=== PATIENT | male | born 1995 | race Caucasian/White ===

== ENCOUNTER 2020-03-26 08:26 | Day surgery (SDC) | payer BC, OTHER ==
[~2020-03-26 08:26] MED LIST: Lactated Ringers 1,000 ML IV SCH; Lidocaine 2% 5 ML SDV ONE; Propofol 200 MG/20 ML SDV ONE
--- NOTE | 2020-03-26 09:05 | PCM.PREANE ---
Preanesthetic Assessment - Anesthesia/Transfusion/Family Hx Anesthesia History: Prior Anesthesia Without Reaction Family History of Anesthesia Reaction: No Transfusion History: No Prior Transfusion(s) - Review of Systems General: No Symptoms Pulmonary: No Symptoms Cardiovascular: No Symptoms Neurological: No Symptoms Other: Reports: None - Physical Assessment NPO Status Date: 03/25/20 Height: 6 ft Weight: 75.75 kg ASA Class: 2 Mental Status: Alert & Oriented x3 Airway Class: Mallampati = 3 Dentition: Reports: Normal Dentition ROM/Head Extension: Full Lungs: Clear to Auscultation, Normal Respiratory Effort Cardiovascular: Regular Rate, Regular Rhythm - Allergies Allergies/Adverse Reactions: Allergies Allergy/AdvReac Type Severity Reaction Status Date / Time No Known Allergies Allergy Verified 03/22/20 13:57 - Blood Blood Available: No - Anesthesia Plan Pre-Op Medication Ordered: None - Acknowledgements Pt an Appropriate Candidate for the Planned Anesthesia: Yes Alternatives and Risks of Anesthesia Discussed w Pt/Guardian: Yes Pt/Guardian Understands and Agrees with Anesthesia Plan: Yes Additional Comments: PMH: ADD on concerta PLAN: TIVA PreAnesthesia Questionnaire HEENT History: Reports: Other (See Below) Other HEENT History: uses glasses for night driving Psychiatric History: Reports: ADD - Past Surgical History Head Surgeries/Procedures: Reports: None HEENT Surgical History: Reports: Oral Surgery Other HEENT Surgeries/Procedures: removal of wisdom teeth - SUBSTANCE USE Smoking Status *Q: Never Smoker Recreational Drug Use History: No - HOME MEDS Home Medications: Home Meds Cholecalciferol (Vitamin D3) [Vitamin D3] 1,000 unit PO DAILY 03/22/20 [History] Concerta 18 mg PO DAILY 03/22/20 [History] Vitamin B Complex 1 cap PO DAILY 03/22/20 [History] - CURRENT (IN HOUSE) MEDS Current Meds: Current Medications Lactated Ringer's (Ringers, Lactated) 1,000 mls @ 125 mls/hr IV ASDIRECTED RAY Discontinued Medications Lidocaine (Xylocaine-Mpf 2%) Confirm Administered Dose 5 ml .ROUTE .STK-MED ONE Stop: 03/26/20 08:23 Propofol (Diprivan 20 Ml) Confirm Administered Dose 400 mg .ROUTE .STK-MED ONE Stop: 03/26/20 08:23 Propofol (Diprivan 20 Ml) Confirm Administered Dose 200 mg .ROUTE .STK-MED ONE Stop: 03/26/20 08:25
[2020-03-26] MEDS ORDERED: Propofol 200 MG/20 ML SDV ONE ×3 (10:41→10:54)
--- NOTE | 2020-03-26 11:10 | PCM.OPNOTE ---
- General Post-Op/Procedure Note Date of Surgery/Procedure: 03/26/20 Operative Procedure(s): Esophagogastroduodenoscopy with duodenal and gastric biopsies. Colonoscopy with random cecal, sigmoid and rectal biopsies. Pre Op Diagnosis: Chronic abdominal pain with noninfectious diarrhea. Abdominal bloating. Post-Op Diagnosis: Mild chronic gastritis. No acute colitis. Anesthesia Technique: MAC (ASA II) Primary Surgeon: Paresh Carlson Condition: Good Free Text/Narrative:: DICTATION [id number] CPT CODE [id number]
[2020-03-26] MEDS ORDERED: Lactated Ringers 1,000 ML IV SCH (11:15)
--- NOTE | 2020-03-26 11:37 | PCM.POSTAN ---
POST ANESTHESIA ASSESSMENT - MENTAL STATUS Mental Status: Alert, Oriented - VITAL SIGNS Vital Signs: Last Vital Signs Temp 98.2 F 03/26/20 11:04 Pulse 66 03/26/20 11:35 Resp 19 03/26/20 11:35 BP 101/47 L 03/26/20 11:35 Pulse Ox 99 03/26/20 11:35 - RESPIRATORY Respiratory Status: Respiratory Rate WNL, Airway Patent, O2 Saturation Stable - CARDIOVASCULAR CV Status: Pulse Rate WNL, Blood Pressure Stable - GASTROINTESTINAL GI Status: No Symptoms - POST OP HYDRATION Hydration Status: Adequate & Stable
--- NOTE | 2020-03-26 11:53 | PCM48HPAN ---
Post Anesthesia Note - EVALUATION WITHIN 48HRS OF ANESTHETIC Vital Signs in Normal Range: Yes Patient Participated in Evaluation: Yes Respiratory Function Stable: Yes Airway Patent: Yes Cardiovascular Function Stable: Yes Hydration Status Stable: Yes Pain Control Satisfactory: Yes Nausea and Vomiting Control Satisfactory: Yes Mental Status Recovered: Yes Vital Signs: Last Vital Signs Temp 98.2 F 03/26/20 11:04 Pulse 70 03/26/20 11:45 Resp 16 03/26/20 11:45 BP 128/82 03/26/20 11:45 Pulse Ox 99 03/26/20 11:45
--- NOTE | 2020-03-26 13:45 | OR ---
SURGEON: Paresh Carlson M.D. DATE OF PROCEDURE: 03/26/2020 OPERATION PERFORMED: Esophagogastroduodenoscopy with biopsy. PRIMARY SURGEON: Paresh Carlson M.D. ANESTHESIA: MAC. ASA CLASSIFICATION: II. PREOPERATIVE DIAGNOSES: Abdominal pain with bloating. POSTOPERATIVE DIAGNOSES: Mild chronic gastritis without ulceration. DESCRIPTION OF PROCEDURE: The patient was taken to the endoscopy room and positioned on the endoscopy table in the left lateral decubitus position. Time-out was called for appropriate identification of the patient and procedure. Monitored anesthesia care was provided. The bite block was placed between the patient's teeth. The gastroscope was inserted through the bite block into the oropharynx and advanced without difficulty through the esophagus and stomach, into the duodenum where examination was now carried out in a retrograde fashion. Biopsies of the duodenum were obtained. No acute inflammatory changes or ulcerations were noted. The stomach does show [id number] chronic gastritis. Again, biopsies of the antrum were obtained. The gastroscope was retroflexed to visualize the proximal stomach. No acute ulcerations were noted proximally. There was no evidence of a hiatal hernia. The gastroscope was then straightened and slowly withdrawn carefully visualizing the greater and lesser curvatures. Again, no ulcerations or inflammatory changes were noted. The GE junction was well defined and showed no acute inflammatory changes or ulcerations. The stomach demonstrated good contractility. No mid or proximal lesions were identified. As the scope was withdrawn, the vocal cords were visualized, noted to move symmetrically. The gastroscope was then removed with the patient having tolerated the procedure well. Following colonoscopy, he was taken to recovery room in stable condition. RAMILA / WOJCIECH /[id number]
--- NOTE | 2020-03-26 14:16 | OR ---
SURGEON: Paresh Carlson M.D. DATE OF PROCEDURE: 03/26/2020 OPERATION PERFORMED: Colonoscopy with biopsies of the cecum, sigmoid, and rectum. PRIMARY SURGEON: Paresh Carlson MD ANESTHESIA: MAC. ASA CLASSIFICATION: II. PREOPERATIVE DIAGNOSIS: Chronic noninfectious diarrhea. POSTOPERATIVE DIAGNOSIS: No acute inflammatory changes. DESCRIPTION OF PROCEDURE: With the patient maintained in the left lateral decubitus position and following esophagogastroduodenoscopy, colonoscopy was performed. The colonoscope was inserted into the rectum and advanced with minimal difficulty to the cecum. The cecum was identified by internal landmarks and external pressure. The colonoscope was retroflexed in the cecum to visualize the ascending colon, then straightened and slowly withdrawn. Random biopsies of the cecum were obtained given this gentleman's history of progressive and persistent noninfectious diarrhea. No acute inflammatory changes were noted in the cecum, ascending colon, hepatic flexure, transverse colon, splenic flexure, or descending colon. Again, sigmoid biopsies were obtained in a random fashion given his history. No diverticular changes or polyps were noted in the sigmoid colon. The colonoscope was then withdrawn to the rectum and retroflexed. No acute inflammatory changes or ulcerations were identified. Again, because of his history, random biopsies of the rectum were obtained. There was no obvious proctitis nor any ulcerations noted. The colonoscope was then straightened, the rectum aspirated, and the colonoscope removed. The patient tolerated the procedure well and was taken to recovery room in stable condition. RAMILA / WOJCIECH /[id number]
== END 2020-03-26 12:31 | disposition home or self-care (01) ==
LOC: MW.SDS 08:26
PROVIDERS: ATTEND Surgery
DX: K52.9 Noninfective gastroenteritis and colitis, unspecified (principal); K29.50 Unspecified chronic gastritis without bleeding; K31.89 Other diseases of stomach and duodenum; F98.8 Other specified behavioral and emotional disorders with onset usually occurring in childhood and adolescence; Z79.899 Other long term (current) drug therapy; Z98.818 Other dental procedure status; Z72.89 Other problems related to lifestyle
CPT/HCPCS: 43239; 45380; J2001; J2704; J7120; 00813; 88305; 88312